=== PATIENT | female | born 1965 | race Caucasian/White ===

== ENCOUNTER 2020-08-23 06:19 | Inpatient (IN) ==
--- NOTE | 2020-08-07 14:15 | PAT Medication Instructions ---
Medication Instructions Date of Service August 07, 2020 Home Medications Medication Instructions Recorded Trulicity 1.5 mg/0.5 mL 1.5 mg SQ WEEKLY 90 Days #6 ml NS 06/15/19 subcutaneous pen injector rosuvastatin 5 mg tablet 5 mg PO WK 90 Days #13 tab 02/22/20 Trulicity 1.5 mg/0.5 mL subcutaneous pen injector 1.5 mg SQ WEEKLY cholecalciferol (vitamin D3) 50 mcg (2,000 unit) capsule 2,000 units PO DAILY lamotrigine 150 mg tablet 150 mg PO BID lorazepam 1 mg tablet 1 mg PO HS tramadol 50 mg tablet 50 mg PO TID PRN rosuvastatin 5 mg tablet 5 mg PO WK pantoprazole [Protonix] 20 mg PO QAM quetiapine [Seroquel] 25 mg PO HS Continue as directed Trulicity 1.5 mg/0.5 mL subcutaneous pen injector 1.5 mg SQ WEEKLY (just do not take on morning of surgery) rosuvastatin 5 mg tablet 5 mg PO WK DO NOT take the morning of surgery cholecalciferol (vitamin D3) 50 mcg (2,000 unit) capsule 2,000 units PO DAILY Take morning of surgery With a small sip of water, OTHERWISE NOTHING TO EAT OR DRINK AFTER MIDNIGHT: lamotrigine 150 mg tablet 150 mg PO BID tramadol 50 mg tablet 50 mg PO TID PRN (okay to take up to 4 hours prior to surgery if needed) pantoprazole [Protonix] 20 mg PO QAM Take evening before surgery lamotrigine 150 mg tablet 150 mg PO BID lorazepam 1 mg tablet 1 mg PO HS tramadol 50 mg tablet 50 mg PO TID PRN (if needed) quetiapine [Seroquel] 25 mg PO HS Other Notes If you have any questions please call us at [phone] or [phone] or [phone] or [phone]
--- NOTE | 2020-08-10 09:26 | Anesthesiology Consultation ---
Date of Service August 10, 2020 Assessment & Plan (1) Encounter for pre-operative examination: - Per assessment on 08/10: Travel screen negative. No known COVID-19 positive contacts or current COVID-19 related symptoms (but does have intermittent, chr onic cough x years). Surgeon arranging preop COVID testing (scheduled 08/16; [place]). Awaiting results. - Check BSG AM DOS - Possible difficult intubation: d/t decreased cervical extension Chart Review Chart Review: Acceptable Risk for Surgery and Patient seen in Pre Admission Testing Teaching & Discussion Pre-Anesthesia Teaching/Discussion Notes: Instructed NPO after midnight before surgery,except medications with 15 cc of water. Medication instructions provided according to the PAT guidelines. History Surgery Operation Date: 08/23/20 07:30 Proposed Procedures p Left Robotic Partial Nephrectomy, Possible Radical Nephrectomy - Jv Butcher MD Height/Weight Height: 5 ft 6 in Weight: 93.44 kg Allergies Allergy/AdvReac Type Severity Reaction Status Date / Time [place] AdvReac Unknown lemon - Uncoded 08/03/20 09:45 face red and itchy scalp glipiZIDE AdvReac Unknown muscle Uncoded 08/03/20 09:45 aches metformin AdvReac Unknown muscle Uncoded 08/03/20 09:45 aches Medications Home Medications Medication Instructions Recorded Confirmed Last Taken Trulicity 1.5 mg/0.5 mL 1.5 mg SQ WEEKLY 90 Days #6 ml NS 06/15/19 08/03/20 Unknown subcutaneous pen injector cholecalciferol (vitamin D3) 50 2,000 units PO DAILY 06/17/19 08/03/20 Unknown mcg (2,000 unit) capsule lamotrigine 150 mg tablet 150 mg PO HS 06/17/19 08/10/20 Unknown lorazepam 1 mg tablet 1 mg PO HS tab 06/17/19 08/03/20 Unknown tramadol 50 mg tablet 50 mg PO TID PRN 06/17/19 08/03/20 Unknown rosuvastatin 5 mg tablet 5 mg PO WK 90 Days #13 tab 02/22/20 08/03/20 Unknown pantoprazole [Protonix] 20 mg PO QAM 08/03/20 08/03/20 Unknown quetiapine [Seroquel] 25 mg PO HS 08/03/20 08/03/20 Unknown Past Medical History Medical History Anxiety Bulging of cervical intervertebral disc Chronic obstructive pulmonary disease currently being worked up for suspected COPD Depression Diabetes mellitus, type 2 on Trulicity GERD (gastroesophageal reflux disease) controlled Hyperlipidemia Kidney mass Obesity Exercise / Class Metabolic Activity II 4-5 Yardwork/Stairs/Walk up hill (one flight of stairs (no chest pain/no SOB)) Past Family History Family History Father Diabetes Prostate cancer Mother Hypertension Grandmother (Paternal) Diabetes Past Surgical History Surgical History History of surgery genital warts removal History of tonsillectomy and adenoidectomy Hx of LASIK Past Anesthesia History No Hx of Anesthesia Complications (except PONV x 1 episode) and No Family Hx of Anesthesia Complications History of PONV History of PONV (x1 episode >improvement with subsequent anesthesia when pre- treatment medication given) Social History Smoking Status: Former smoker Do You Dip or Chew Tobacco: No Smoking End Date: Quit 1993 Hx Alcohol Use: Yes alcohol intake frequency: holidays/special occasions only Hx Substance Use: No substance use type: does not use Review of Systems Patient denies chest pain, shortness of breath, dyspnea on exertion, fever, chills, cough, wheezing, palpitations. Physical Exam Vital Signs VITALS BP 130/84 P 76 TEMP 98.6 SP02 98%RA RESP 16 PHYSICAL Decreased cervical extension (+ bulging discs) Full TMJ range of motion. TMD 3 finger breaths Mallampati Score 3 Dentition: intact, + several crowns (sides/molars) Lungs: clear throughout to auscultation Cardiac: regular rate and rhythm, no murmurs noted Spine: normal Carotid arteries: negative bruit Extremities: no edema Testing Laboratory Results 08/10/20 09:53 08/10/20 09:53 Hemoglobin A1c 5.8 % (4.5-5.6) H 08/10/20 09:53 Urine Color Yellow 08/10/20 08:25 Urine Appearance Clear (Clear) 08/10/20 08:25 Urine pH 6.5 (4.5-7.5) 08/10/20 08:25 Ur Specific [place] 1.015 (1.000-1.030) 08/10/20 08:25 Urine Protein Negative (Negative) 08/10/20 08:25 Urine Glucose (UA) Negative (Negative) 08/10/20 08:25 Urine Ketones Negative (Negative) 08/10/20 08:25 Urine Nitrite Negative (Negative) 08/10/20 08:25 Ur Leukocyte Esterase Negative (Negative) 08/10/20 08:25 Blood Type O Positive 08/10/20 09:53 Antibody Screen NEGATIVE 08/10/20 09:53 Electrocardiogram Date: 08/10/20 Findings: + NSR @ (74) Chest X-Ray Date: 08/10/20 Findings: + NAD
--- NOTE | 2020-08-10 10:30 | XRay Report ---
XR chest Pre-admission PA/Lat HISTORY: Preop. COMPARISON: Chest 10/21/2014. FINDINGS: The lungs are clear. Cardiac silhouette is normal in size. No pleural effusions. No pneumot horax. IMPRESSION: No acute process. ACT 112: Negative or not required by law. Electronically signed by: Eric Hopkins M.D. 08/10/2020 10:29 AM
[2020-08-10 12:13] LABS: BUN Creatinine Ratio 9.6 (10-20); Calcium 9.7 mg/dl (8.5-10.1); Creatinine Clr Calc Pharmacy 71.5 ml/min; Est GFR (African American) 69.9; Est GFR (Non-African American) 60.3; Potassium 3.9 mmol/L (3.5-5.1)
[2020-08-10 12:19] LABS: Appearance Urine Clear (Clear); Bilirubin Urine Negative (Negative); Blood Urine Negative (Negative); Color Urine Yellow; Glucose Urine UA Negative (Negative); Ketones Urine Negative (Negative); Leukocyte Esterase Urine Negative (Negative); Nitrite Urine Negative (Negative); Protein Urine Negative (Negative); Specific Gravity Urine 1.015 (1.000-1.030); Urobilinogen Urine Negative (Negative); pH Urine 6.5 (4.5-7.5)
[2020-08-10 12:29] LABS: Basophils # (auto) 0.02 K/uL (0-0.2); Basophils % (auto) 0.3 %; Eosinophils # (auto) 0.42 K/uL (0-0.5); Eosinophils % (auto) 6.8 %; Hematocrit (blood only) 44.3 % (37-47); Hemoglobin 15.5 g/dL (12.0-16.0); Immature Granulocytes # (auto) 0.01 K/uL (0.00-0.02); Immature Granulocytes % (auto) 0.2 %; Lymphocytes # (auto) 1.59 K/uL (1.2-3.4); Lymphocytes % (auto) 25.6 %; Mean Corpuscular Hemoglobin 30.3 pg (25-34); Mean Corpuscular Volume 86.7 fL (80-100); Mean Platelet Volume 10.1 fL (7.4-10.4); Monocytes # (auto) 0.63 K/uL (0.11-0.59); Monocytes % (auto) 10.1 %; Neutrophils # (auto) 3.55 K/uL (1.4-6.5); Platelet Count 314 K/uL (130-400); RDW Coefficient of Variation 12.8 % (11.5-14.5); RDW Standard Deviation 41.4 fL (36.4-46.3); Red Blood Count 5.11 M/uL (4.2-5.4); White Blood Count 6.22 K/uL (4.8-10.8)
[2020-08-10 12:31] LABS: Estimated Average Glucose 120 mg/dl; Hemoglobin A1C 5.8 % (4.5-5.6)
--- NOTE | 2020-08-10 13:42 | Electrocardiogram Report ---
Test Reason : Blood Pressure : / mmHG Vent. Rate : 074 BPM Atrial Rate : 074 BPM P-R Int : 154 ms QRS Dur : 102 ms QT Int : 408 ms P-R-T Axes : 078 085 062 degrees QTc Int : 452 ms Normal sinus rhythm Normal ECG When compared with ECG of 11-SEP-2005 06:27, No significant change was found Confirmed by Alfredo Meneses ([id number]) on 08/10/2020 1:42:38 PM Referred By: Jv Butcher Confirmed By:Alfredo Meneses
[~2020-08-23 06:19] MED LIST: LR 15ML/HR IV SCH; ceFAZolin 2000MG 2,000 MG/15 ML SYR IV SCH
[2020-08-23] MEDS ORDERED: fentaNYL citrate 100 MCG/2 ML VIAL ONE ×3 (06:58→11:24)
[2020-08-23] MEDS ORDERED: ONDANSETRON INJ 2 MG/ML 2 ML VIAL ONE ×2 (06:58→12:35)
[2020-08-23] MEDS ORDERED: LIDOCAINE HCL 2% 2 ML VIAL/AMP(20MG/ML) INFIL ONE (06:58)
[2020-08-23] MEDS ORDERED: DEXAMETHASONE SOD INJ 4 MG/ML VIAL ONE (06:58)
[2020-08-23] MEDS ORDERED: PROPOFOL IV EMULSION 10 MG/ML 20 ML VIAL IV ONE (06:58)
[2020-08-23] MEDS ORDERED: MIDAZOLAM HCL 1 MG/ML 2ML VIAL ONE (06:58)
[2020-08-23] MEDS ORDERED: ACETAMINOPHEN 1000 MG/100 ML IV IV ONE (07:02)
[2020-08-23] MEDS ORDERED: BUPIVACAINE 0.5 % 5 MG/1 ML MPF 30ML VIAL ONE (07:30)
--- NOTE | 2020-08-23 08:27 | History & Physical Report ---
Date of Service August 23, 2020 Assessment & Plan (1) Renal mass: Left renal mass - plan for robotic partial nephrectomy - if unable to adequately perform partial, we will complete a radical nephrectomy - risks, benefits, expectations discussed History of Present Illness Primary Care Provider: Pool Spencer MD Left renal mass - mid pole, posterior - plan for definitive treatment today - in the form of robotic partial nephrectomy, possible radical nephrectomy Allergies Allergy/AdvReac Type Severity Reaction Status Date / Time [place] AdvReac Unknown lemon - Uncoded 08/23/20 06:58 face red and itchy scalp glipiZIDE AdvReac Unknown muscle Uncoded 08/23/20 06:58 aches metformin AdvReac Unknown muscle Uncoded 08/23/20 06:58 aches Home Medications Medication Instructions Recorded Confirmed Type Trulicity 1.5 mg/0.5 mL 1.5 mg SQ WEEKLY 90 Days #6 ml NS 06/15/19 08/23/20 Rx subcutaneous pen injector cholecalciferol (vitamin D3) 50 2,000 units PO DAILY 06/17/19 08/23/20 History mcg (2,000 unit) capsule lamotrigine 150 mg tablet 150 mg PO HS 06/17/19 08/23/20 History lorazepam 1 mg tablet 1 mg PO HS tab 06/17/19 08/23/20 History tramadol 50 mg tablet 50 mg PO TID PRN 06/17/19 08/23/20 History rosuvastatin 5 mg tablet 5 mg PO WK 90 Days #13 tab 02/22/20 08/23/20 Rx pantoprazole [Protonix] 20 mg PO QAM 08/03/20 08/23/20 History quetiapine [Seroquel] 25 mg PO HS 08/03/20 08/23/20 History Past Med/Surg History Medical History Anxiety Bulging of cervical intervertebral disc Chronic obstructive pulmonary disease currently being worked up for suspected COPD Depression Diabetes mellitus, type 2 on Trulicity GERD (gastroesophageal reflux disease) controlled Hyperlipidemia Kidney mass Obesity Surgical History History of surgery genital warts removal History of tonsillectomy and adenoidectomy Hx of LASIK Family History Father Diabetes Prostate cancer Mother Hypertension Grandmother (Paternal) Diabetes Social History Smoking Status: Never smoker Smoking End Date: Quit 1993; Second Hand Exposure: No; Do You Dip or Chew Tobacco: No; Tobacco Cessation Education Requested by Patient: No Hx Alcohol Use: Yes Hx Substance Use: No Preferred Language: Greek Communication Ability: Effective Restaurant Hostess Required: No Beliefs That Will Affect Care: None Current Living Situation: Spouse Other Information That Helps Us Care for You: No Feels Safe at Home: Yes Safety Concerns: Feels Safe At This Time Physical Exam Constitutional: well developed and well nourished Neck: neck nontender Respiratory: normal respiratory effort; no respiratory distress and does not use accessory muscles Cardiovascular: Rate/Rhythm: regular rate Vessels: radial pulses present Extremities: no edema Gastrointestinal (Abdomen): Inspection/Auscultation: abdomen normal to inspection Percussion/Palpation: abdomen soft; abdomen nontender and no guarding Musculoskeletal: Head/Neck/Chest: normocephalic and head atraumatic Extremities: extremities normal to inspection Skin: no rashes and no lesions Trauma: no evidence of skin trauma Neurologic: awake; not obtunded Speech / Cognition: normal speech Motor/Sensory: no tremor Psychiatric: Orientation: alert and oriented x 3 Lymphatic: no lymphadenopathy Results & Data ([facility]) Vital Signs (Past 12 Hours) Vital Signs Temp Pulse Resp BP Pulse Ox 08/23/20 07:08 36.7 C 78 20 155/84 H 98
[2020-08-23] MEDS ORDERED: ATROPINE SULFATE 0.1 MG/ML 10ML SYR IV PRN (09:34)
[2020-08-23] MEDS ORDERED: LABETALOL HCL IV 5 MG/ML 20ML IV PRN (09:34)
[2020-08-23] MEDS ORDERED: ONDANSETRON INJ 2 MG/ML 2 ML VIAL IV PRN ×2 (09:34→14:33)
[2020-08-23] MEDS ORDERED: PROMETHAZINE HCL 12.5 MG in SODIUM CHLORIDE 0.9% 50 ML IV PRN (09:34)
[2020-08-23] MEDS ORDERED: HYDROmorphone INJ 1 MG/ML SYRINGE IV PRN (09:34)
[2020-08-23] MEDS ORDERED: PROMETHAZINE HCL INJ 25 MG/ML 1 ML VIAL ONE (10:09)
[2020-08-23] MEDS ORDERED: HYDROmorphone INJ 2 MG/ML SYR/VIAL ONE (10:52)
[2020-08-23] MEDS ORDERED: LABETALOL HCL IV 5 MG/ML 20ML IV ONE (11:23)
[2020-08-23] MEDS ORDERED: MANNITOL 25% 12.5 GM/50 ML VIAL IV ONE ×2 (12:05→12:26)
[2020-08-23] MEDS ORDERED: GLYCOPYRROLATE 0.2 MG/ML VIAL ONE (12:36)
[2020-08-23] MEDS ORDERED: NEOSTIGMINE METHYLSULFATE 5 MG/5 ML SYR ONE (12:36)
--- NOTE | 2020-08-23 13:10 | Operative Report ---
PG Post Operative Report Pre & Post Diagnosis Operation Date: 08/23/20 08:20 Pre-Op Diagnosis: Left Renal Mass Post-Op Diagnosis: Left Renal Mass I identified the patient and participated in the time-out.: Yes Procedure Operation Date: 08/23/20 08:20 Actual Procedures p Left Robotic Partial Nephrectomy(Left) - Jv Butcher MD Surgeon Homer Butcher MD Liaison Inspection Laboratory Assistant Guero Caro; Monica Benjamin Estimated Blood Loss 25 Findings Consistent with Post-Op Diagnosis Specimens Left renal mass with overlying fat Description of Procedure Patient was identified in the preoperative holding area, appropriate informed consents were reviewed and completed and she was transported to the operating suite. Upon arrival she received appropriate preoperative antibiotics in the form of Ancef as well as general anesthesia. She was placed in a [id number] left side up lateral decubitus position. All appropriate imaging was pulled up on then room monitors. A Veress needle was passed into the left upper quadrant and insufflation of the abdomen to 15 mmHg achieved. I then marked port placement in a standard robotic partial nephrectomy fashion with the first port placed approximately 2 fingers below the costal margin just lateral to the rectus border. The second port was approximately 6 cm inferior followed by a 2 additional ports each 6 cm inferior to the port above it. A 12 mm port was marked in the infraumbilical space as well as a 5 mm midline supraumbilical port approximately 8 cm above the umbilicus. I began by passing one of the robotic ports utilizing the visual obturator and a 5 mm scope. I then confirmed that there were no adhesions and all the subsequent ports were placed without incident. The robot was docked. I began by mobilizing the white line of [place]. I was able to dissect the colon off the entire medial surface of the kidney, I also dissected inferior to the kidney by approximately 10 cm and I started to separate some adhesions linking the colon to the underside of the spleen. This allowed the spleen to move somewhat cephalad and further free the upper medial portion of the kidney. After entirely medializing the colon I was able to lift the lower cone of Gerota's and identify the gonadal and ureter. I dissected posterior tibias onto the psoas muscle. I follow the anterior surface of the gonadal to the level of the renal vein. I dissected around the renal vein and identified an adrenal vein on the opposite side of the renal vein from the gonadal. Careful dissection posterior to the vein revealed a solitary artery which was entirely dissected. At that time I turned my attention to further mobilization of the kidney. I elected to mobilize both inside and outside of Gerota's fascia. I began by mobilizing outside of Gerota's and flipping the kidney. I then incised it is on the anterior portion of the kidney and dissected this Gerota's fascia off of the kidney laterally. I was able to use this to help prop the kidney out. I had to dissect the entire upper and lower pole of the kidney to allow full mobilization. The mass is exactly posterior to the midpole and I had to flip the kidney entirely to be able to visualize this. I was able to eventually reach the lateral border of the mass and then further dissection allowed me to fully visualize the border of the mass. Intraoperative ultrasound was conducted at that time confirming the borders of the mass and planning for resection. I did miladys the capsule and my intended location of incision. At that time I felt that there was adequate visualization in preparation for resection. 12.5 g of mannitol was administered and a bulldog clamp was placed on the renal artery followed by a solitary bulldog clamp on the renal vein. Time was marked and resection initiated. I was able to begin on the medial inferior aspect of the mass and dissected carefully towards its superior lateral border. Visualization was excellent as hemostasis was excellent. I was able to visualize the mass and ensure I did not encroach upon or violate it. After entirely excising the mass renorraphy was conducted utilizing a sliding clip technique and a 3-0 Vicryl V-Loc suture. 5 total passes across the defect were required and hemostasis appeared to be excellent. At that time we unclamped the kidney. Warm ischemia time was 14 minutes. There was no evidence of any bleeding from the defect nor the hilar structures. The specimen was bagged. FloSeal was placed over top of the defect as well as a bit of Tisseel. Gerota's fascia was reapproximated over the kidney utilizing a running 3 OV lock suture. The colon was guided back into the left lateral portion of the abdomen and omentum was draped over the surgical site. The specimen was extracted through the infraumbilical port which was subsequently closed with 0 Vicryl through the fascia. Other ports were closed with 4-0 Monocryl to the skin, all ports were infiltrated with half percent Marcaine prior to closure. FloSeal was placed over the incisions. Guero Caro assisted through the seasr portions of the case and Monica Nj assisted from incision to closure. I attest to the content of the Intraoperative Record and any orders documented therein. Any exceptions are noted below.
[2020-08-23] MEDS ORDERED: FLOSEAL HEMOSTATIC MATRIX 10ML TOP ONE (13:14)
[2020-08-23] MEDS ORDERED: SURGICEL ABSORB HEMOSTAT 2IN X 14IN TOP ONE (13:14)
[2020-08-23] MEDS ORDERED: TISSEEL FIBRIN SEALANT 4ML TOP ONE (13:15)
--- NOTE | 2020-08-23 14:03 | Anesthesiology Progress Note ---
Date of Service August 23, 2020 Anesthesia Post Procedure Vital Signs Vital Signs: Temp Pulse Pulse Resp BP Pulse Ox 08/23/20 13:57 36.2 C L 73 14 147/77 H 95 08/23/20 13:45 70 18 140/75 97 08/23/20 13:35 65 16 143/90 H 96 08/23/20 13:25 66 14 154/81 H 98 08/23/20 13:15 70 14 149/84 H 96 08/23/20 13:08 37.3 C 79 12 159/87 H 96 08/23/20 07:08 36.7 C 78 20 155/84 H 98 Pain Intensity Left Abdomen: Pain Intensity: 3 Transfer of Care Handoff Completed per policy Notes Mental Status: alert / awake / arousable Patient Amnestic to Procedure: Yes Nausea / Vomiting: adequately controlled Pain: adequately controlled Airway Patency, RR, SpO2: stable & adequate BP & HR: stable & adequate Hydration State: stable & adequate Anesthetic Complications: no major complications apparent
[2020-08-23 14:07] LABS: Basophils # (auto) 0.02 K/uL (0-0.2); Basophils % (auto) 0.1 %; Eosinophils # (auto) 0.02 K/uL (0-0.5); Eosinophils % (auto) 0.1 %; Hematocrit (blood only) 41.3 % (37-47); Hemoglobin 14.2 g/dL (12.0-16.0); Immature Granulocytes # (auto) 0.06 K/uL (0.00-0.02); Immature Granulocytes % (auto) 0.4 %; Lymphocytes # (auto) 0.81 K/uL (1.2-3.4); Lymphocytes % (auto) 5.2 %; Mean Corpuscular Hemoglobin 29.5 pg (25-34); Mean Corpuscular Volume 85.9 fL (80-100); Mean Platelet Volume 9.6 fL (7.4-10.4); Monocytes # (auto) 0.14 K/uL (0.11-0.59); Monocytes % (auto) 0.9 %; Neutrophils # (auto) 14.49 K/uL (1.4-6.5); Neutrophils % (auto) 93.3 %; Platelet Count 291 K/uL (130-400); RDW Coefficient of Variation 12.6 % (11.5-14.5); RDW Standard Deviation 39.8 fL (36.4-46.3); Red Blood Count 4.81 M/uL (4.2-5.4); White Blood Count 15.54 K/uL (4.8-10.8)
[2020-08-23 14:09] LABS: Mean Corpuscular Hgb Conc 34.4 g/dL (32-36)
[2020-08-23 14:24] LABS: BUN Creatinine Ratio 10.6 (10-20); Calcium 8.6 mg/dl (8.5-10.1); Creatinine Clr Calc Pharmacy 66.7 ml/min; Est GFR (African American) 65.4; Est GFR (Non-African American) 56.4; Potassium 4.1 mmol/L (3.5-5.1)
[2020-08-23] MEDS ORDERED: MoRPHine SULFATE 2 MG/ML CARP IV PRN (14:33)
[2020-08-23] MEDS ORDERED: ACETAMINOPHEN 325 MG TAB PO PRN (14:33)
[2020-08-23] MEDS ORDERED: oxyCODONE HCL IR 5 MG TAB (IMMEDIATE RELEASE) PO PRN (14:33)
[2020-08-23] MEDS ORDERED: PHARMACY GLYCEMIC MGMT CONSULT PRN (14:42)
[2020-08-23] MEDS: LACTATED RINGER'S 1,000 ML IV SCH (14:55)
[2020-08-23] MEDS ORDERED: GLUCOSE 10 TABS/TUBE PO PRN (15:30)
[2020-08-23] MEDS ORDERED: CARBOHYDRATES FOR HYPOGLYCEMIA PO PRN (15:30)
[2020-08-23] MEDS ORDERED: NovoLIN-N (NPH) PER UNIT CHARGE SQ ONE (15:30)
[2020-08-23] MEDS ORDERED: DEXTROSE 50% 50 ML SYRINGE IV PRN (15:30)
[2020-08-23] MEDS ORDERED: GLUCOSE 40% GEL 15 GM TUBE PO PRN (15:30)
[2020-08-23] MEDS ORDERED: GLUCAGON FOR INJ 1 MG VIAL SQ PRN (15:30)
[2020-08-23] MEDS: oxyCODONE HCL IR 5 MG TAB (IMMEDIATE RELEASE) PO PRN ×2 (16:11→20:19)
[2020-08-23] MEDS ORDERED: ROSUVASTATIN CALCIUM 5 MG TAB PO SCH (17:00)
[2020-08-23] MEDS: ceFAZolin 2000MG 2,000 MG/15 ML SYR IV SCH (17:58)
[2020-08-23] MEDS: INSULIN ASPART 100 UNITS/ML 3 ML PEN SC SCH ×2 (17:59→21:50)
[2020-08-23] MEDS: MoRPHine SULFATE 2 MG/ML CARP IV PRN (18:15)
[2020-08-23] MEDS: QUEtiapine FUMARATE 25 MG TABLET PO SCH (20:17)
[2020-08-23] MEDS: lamoTRIgine 100 MG TAB PO SCH (20:17)
[2020-08-23] MEDS: LORazepam 1 MG TAB PO SCH (20:19)
[2020-08-23] MEDS ORDERED: QUEtiapine FUMARATE 25 MG TABLET PO ONE (21:33)
[2020-08-24] MEDS ORDERED: INSULIN ASPART 100 UNITS/ML 3 ML PEN SC SCH
[2020-08-24] MEDS: oxyCODONE HCL IR 5 MG TAB (IMMEDIATE RELEASE) PO PRN ×5 (00:25→22:04)
[2020-08-24] MEDS: ceFAZolin 2000MG 2,000 MG/15 ML SYR IV SCH (01:05)
[2020-08-24] MEDS: LACTATED RINGER'S 1,000 ML IV SCH ×3 (01:09→20:02)
[2020-08-24] MEDS: MoRPHine SULFATE 2 MG/ML CARP IV PRN ×3 (06:25→20:01)
[2020-08-24 07:05] LABS: Eosinophils # (auto) 0.01 K/uL (0-0.5); Eosinophils % (auto) 0.1 %; Hemoglobin 13.6 g/dL (12.0-16.0); Immature Granulocytes # (auto) 0.03 K/uL (0.00-0.02); Immature Granulocytes % (auto) 0.3 %; Lymphocytes # (auto) 2.06 K/uL (1.2-3.4); Lymphocytes % (auto) 18.8 %; Mean Corpuscular Hemoglobin 30.4 pg (25-34); Mean Corpuscular Hgb Conc 34.9 g/dL (32-36); Mean Corpuscular Volume 87.2 fL (80-100); Mean Platelet Volume 9.7 fL (7.4-10.4); Monocytes # (auto) 1.21 K/uL (0.11-0.59); Monocytes % (auto) 11.1 %; Neutrophils # (auto) 7.64 K/uL (1.4-6.5); Neutrophils % (auto) 69.7 %; Platelet Count 312 K/uL (130-400); RDW Standard Deviation 41.5 fL (36.4-46.3); Red Blood Count 4.47 M/uL (4.2-5.4); White Blood Count 10.95 K/uL (4.8-10.8)
[2020-08-24 07:34] LABS: BUN Creatinine Ratio 10.7 (10-20); Calcium 9.1 mg/dl (8.5-10.1); Creatinine Clr Calc Pharmacy 73.2 ml/min; Est GFR (African American) 73.2; Est GFR (Non-African American) 63.2; Potassium 4.1 mmol/L (3.5-5.1)
[2020-08-24] MEDS: CHOLECALCIFEROL 1,000 UNITS 25 MCG TAB PO SCH (08:34)
[2020-08-24] MEDS: PANTOprazole 40 MG TAB PO SCH (08:34)
[2020-08-24] MEDS: INSULIN ASPART 100 UNITS/ML 3 ML PEN SC SCH ×4 (08:39→20:47)
--- NOTE | 2020-08-24 10:51 | Urology Progress Note ---
Date of Service August 24, 2020 Assessment & Plan (1) Renal mass: 54 yo F POD#1 s/p left partial nephrectomy with Dr. Butcher. - Doing well, progressing as expected - Afebrile, VSS, lab work reviewed and as expected - Pain is better controlled at present time - Tolerating clear liquid diet, will advance to full liquids for lunch - D/C Powell today, monitor - Encourage OOB ambulation, incentive spirometer - Incisions appropriate - Anticipate discharge tomorrow if she continues to progress as expected Admission and Anticipated Discharge Date Admission Date: August 23, 2020 Subjective 54 yo F POD#1 s/p left partial nephrectomy with Dr. Butcher. Pt seen and examined at bedside this AM. Awake, alert and resting in bed. No acute issues overnight. Reports increased pain early this morning around 0400, incisional and left sided. She is now alternating PO oxycodone and IV Morphine with better pain control. Powell catheter intact, patent and draining clear yellow urine. Mild discomfort from catheter, no dysuria or hematuria. Tolerating clear liquid diet, no nausea or vomiting. No fever or chills. Chart review: Afebrile Creatinine 1.02 WBC 10.95 Hgb 13.6 VS - BP 123/73, HR 69, Resp 17, Temp 37.0 No additional concerns today. Review of Systems Constitutional: as per Subjective / HPI Gastrointestinal: as per Subjective / HPI Genitourinary: as per Subjective / HPI Physical Exam Constitutional: well developed and well nourished; no acute distress and not ill appearing Respiratory: normal respiratory effort and able to speak in complete sentences; no respiratory distress and no labored breathing Cardiovascular: Extremities: no calf tenderness and no pedal edema Gastrointestinal (Abdomen): Inspection/Auscultation: abdomen normal to inspection; abdomen not distended Percussion/Palpation: abdomen soft; abdomen nontender and no guarding Musculoskeletal: Head/Neck/Chest: normocephalic and head atraumatic Extremities: extremities normal to inspection Skin: Surgical incisions are well approximated, Dermabond intact, open to air, clean, dry and intact. No erythema, warmth or drainage. Neurologic: moves all extremities and awake Psychiatric: A+Ox3, euthymic affect Genitourinary: no CVA tenderness Results & Data ([facility]) Vital Signs (Past 12 Hours) Vital Signs Temp Pulse Resp BP Pulse Ox 08/24/20 07:30 37.0 C 69 17 123/73 96 08/24/20 03:00 36.8 C 77 17 105/64 95 08/23/20 23:14 36.9 C 70 17 120/71 95 PG Care Time/CCT Total # of Minutes Spent Total Time Spent with Patient: Total time spent is greater than 50% in coordination of care (as documented) at patient's floor/unit and/or counseling patient: Coding Level of Care Code 49832 Subseq Hosp Care Lvl 2 Diagnoses Renal mass N28.89
--- NOTE | 2020-08-24 12:36 | Pharmacy Report ---
Pharmacy Glycemic Short Note 2 - Date of Service August 24, 2020 - Glycemic Short BSG Results (Last 24 hours): 08/23/20 08/23/20 08/23/20 13:16 13:46 17:18 Glucose 173 H POC Glucose 148 H 159 H 08/23/20 08/24/20 08/24/20 20:49 00:41 06:37 Glucose 100 H POC Glucose 140 H 115 H 08/24/20 08/24/20 08:14 12:27 Glucose POC Glucose 90 92 OUTPATIENT ANTIDIABETIC REGIMEN: * Trulicity * HbA1c 5.8% on 08/10/20 ASSESSMENT: * 54 yo F with T2DM admitted 08/23 and now POD 1 s/p partial nephrectomy. Dexamethasone IV administered perioperatively. * BSG's responded well to a one-time dose of NPH to cover steroid effects yesterday. Will not continue basal today as AM fasting BSG is below goal range and steroids are not ongoing * BSG's below goal range today x2, with no insulin administered thus far. Will loosen Novolog parameters to weight-based moderate stress estimate PLAN FOR INPATIENT GLYCEMIC CONTROL: * Hold outpatient diabetes medication (Trulicity) * Basal insulin - discontinue * Bolus insulin - loosen * NovoLog per scale ACHS or Q6hrs while NPO * Goal Range: Low 110 mg/dL - High 140 mg/dL * Correction Factor: 25 mg/dL/unit * Nutritional / Prandial insulin per carb ratio of 1 unit per 9 grams CHO consumed PLAN FOR DISCHARGE: * Continue home Trulicity, as long as patient is not experiencing frequent hypoglycemia as an outpatient and no contraindications exist at discharge
[2020-08-24] MEDS: lamoTRIgine 100 MG TAB PO SCH (20:48)
[2020-08-24] MEDS: QUEtiapine FUMARATE 25 MG TABLET PO SCH (20:49)
[2020-08-24] MEDS: LORazepam 1 MG TAB PO SCH (20:49)
[2020-08-25] MEDS: oxyCODONE HCL IR 5 MG TAB (IMMEDIATE RELEASE) PO PRN ×2 (04:30→08:53)
[2020-08-25] MEDS: LACTATED RINGER'S 1,000 ML IV SCH (06:12)
[2020-08-25 06:55] LABS: Basophils # (auto) 0.02 K/uL (0-0.2); Basophils % (auto) 0.2 %; Eosinophils # (auto) 0.04 K/uL (0-0.5); Eosinophils % (auto) 0.3 %; Hematocrit (blood only) 36.2 % (37-47); Hemoglobin 12.2 g/dL (12.0-16.0); Immature Granulocytes # (auto) 0.04 K/uL (0.00-0.02); Immature Granulocytes % (auto) 0.3 %; Lymphocytes # (auto) 3.24 K/uL (1.2-3.4); Lymphocytes % (auto) 26.8 %; Mean Corpuscular Hgb Conc 33.7 g/dL (32-36); Mean Corpuscular Volume 88.9 fL (80-100); Mean Platelet Volume 9.4 fL (7.4-10.4); Monocytes % (auto) 11.6 %; Neutrophils # (auto) 7.35 K/uL (1.4-6.5); Neutrophils % (auto) 60.8 %; Platelet Count 223 K/uL (130-400); RDW Standard Deviation 42.2 fL (36.4-46.3); Red Blood Count 4.07 M/uL (4.2-5.4); White Blood Count 12.09 K/uL (4.8-10.8)
[2020-08-25 07:22] LABS: BUN Creatinine Ratio 9.6 (10-20); Calcium 8.1 mg/dl (8.5-10.1); Creatinine Clr Calc Pharmacy 75.4 ml/min; Est GFR (African American) 75.9; Est GFR (Non-African American) 65.5; Potassium 4.1 mmol/L (3.5-5.1)
[2020-08-25] MEDS: CHOLECALCIFEROL 1,000 UNITS 25 MCG TAB PO SCH (08:57)
[2020-08-25] MEDS: PANTOprazole 40 MG TAB PO SCH (08:57)
[2020-08-25] MEDS: INSULIN ASPART 100 UNITS/ML 3 ML PEN SC SCH ×2 (09:00→12:39)
--- NOTE | 2020-08-25 12:27 | Urology Progress Note ---
Date of Service August 25, 2020 Assessment & Plan (1) Renal mass: Doing well post op Stable labs and vitals Pain controlled OK for discharge to home today Admission and Anticipated Discharge Date Admission Date: August 23, 2020 Subjective Doing well. POD#2 partial nx. Tolerating diet. Voiding on her own. Pain better controlled. No BM. +Flatus No fevers. No chills. NO CP/SOB. Review of Systems Review of Systems: All systems reviewed & are unremarkable except as noted in HPI & below Physical Exam Constitutional: WD/WN, vitals as above Gastrointestinal (Abdomen): normal bowel sounds, soft, nontender, no hepatosplenomegaly Inc intact Results & Data ([facility]) Vital Signs (Past 12 Hours) Vital Signs Temp Pulse Pulse Resp BP Pulse Ox 08/25/20 11:32 37.1 C 84 20 112/73 90 08/25/20 07:13 37.4 C 92 H 18 115/71 100 08/25/20 05:03 37.7 C H 80 18 99/62 L 100 PG Care Time/CCT Total # of Minutes Spent Total Time Spent with Patient: Total time spent is greater than 50% in coordination of care (as documented) at patient's floor/unit and/or counseling patient: 30 min Coding Level of Care Code 70415 Subseq Hosp Care Lvl 2 Diagnoses Renal mass N28.89
--- NOTE | 2020-08-25 12:30 | Discharge Summary ---
Date of Service August 25, 2020 Admission HPI Per Admitting Provider hx of renal mass. elected for robotic surgery Principal Diagnosis Renal mass Discharge Exam Constitutional WD/WN, vitals as above Eyes PERRL, conjunctivae normal, anicteric sclerae Gastrointestinal (Abdomen) normal bowel sounds, soft, nontender, no hepatosplenomegaly Skin no rashes, warm and dry Discharge Data Allergies Allergy/AdvReac Type Severity Reaction Status Date / Time glipiZIDE AdvReac Unknown muscle Uncoded 08/23/20 06:58 aches metformin AdvReac Unknown muscle Uncoded 08/23/20 06:58 aches Procedures Performed Operation Date: 08/23/20 08:20 Actual Procedures p Left Robotic Partial Nephrectomy(Left) - Jv Butcher MD Total Time Total Time Spent Total Time Spent (In Minutes): 30 Total Time Includes: Examination of the Patient and Discharge Planning Discharge Plan Discharge Items Patient Disposition: Home - Self-Care Reason For Visit: Left Renal Mass Discharge Diagnosis: Left Renal Mass Condition on Discharge: Good Activity: Per Instructions section Lifting: No more than 10 pounds Bathing: Keep incision dry Bathing Comment: OK to shower and bathe Sexual Activity: Wait until after follow-up appointment Exercise/Sports: Wait until after follow-up appointment Driving/Machine Use: 7 days Weightbearing: Full weightbearing Non-emergency contact: Urologist Call non-emergency contact if: your pain is not controlled, you have a fever, your wound has increased redness, your wound has increased drainage and your wound pain has increased Follow-up/Referrals: Polo Spencer MD [Primary Care Provider] - Diet: Regular Addtl Attending Provider Instructions: Rest at home. Pending Studies at Discharge: No Stand-Alone Forms: My [facility], Smoking Cessation Medications and DC Order Prescriptions: Continued Trulicity 1.5 mg/0.5 mL pen injector 1.5 mg SQ WEEKLY 90 Days Qty: 6 RF: 3 rosuvastatin 5 mg tablet 5 mg PO WK 90 Days Qty: 13 RF: 1 lamotrigine [Lamictal] 150 mg tablet 150 mg PO HS RF: 0 lorazepam 1 mg tablet 1 mg PO HS RF: 0 tramadol 50 mg tablet 50 mg PO TID PRN (Reason: Pain) RF: 0 cholecalciferol (vitamin D3) 50 mcg (2,000 unit) capsule 2,000 units PO DAILY RF: 0 quetiapine [Seroquel] 25 mg Tablet 25 mg PO HS RF: 0 pantoprazole [Protonix] 20 mg Tablet,Delayed Release (Dr/Ec) 20 mg PO QAM RF: 0 Discharge Orders: Discharge Order (Routine); Ordered 08/25/20 Ordered By: Thomas Tolentino Admission Data Admit Date/Time: 08/23/20 13:08 Attending Provider: Jv Butcher Admit Provider: Jv Butcher Primary Care Provider: Pool Spencer Coding Level of Care Code D/C Day Management <30 mins
[2020-08-25] MEDS: MoRPHine SULFATE 2 MG/ML CARP IV PRN (12:44)
--- NOTE | 2020-08-27 08:11 | Discharge Summary ---
Date of Service August 27, 2020 Admission HPI Per Admitting Provider hx of renal mass. elected for robotic surgery Principal Diagnosis Renal masssuspected renal cell carcinoma Discharge Data Allergies Allergy/AdvReac Type Severity Reaction Status Date / Time glipiZIDE AdvReac Unknown muscle Uncoded 08/23/20 06:58 aches metformin AdvReac Unknown muscle Uncoded 08/23/20 06:58 aches Procedures Performed Operation Date: 08/23/20 08:20 Actual Procedures p Left Robotic Partial Nephrectomy(Left) - Jv Butcher MD Hospital Course (1) Renal mass: Admitted for a robotic partial nephrectomydetails of this procedure as dictated previously in the operative report, however, in summary she tolerated the procedure very well and was stable on the floor. She progressed appropriately over her 2-day hospital stay. She was ambulatory. She voided after removal of Powell catheter. She was tolerating a diet. She had her pain controlled on oral medications. She was discharged home on postoperative day #2 in stable condition. Total Time Total Time Spent Total Time Spent (In Minutes): 15 Discharge Plan Discharge Items Patient Disposition: Home - Self-Care Reason For Visit: Left Renal Mass Discharge Diagnosis: Left Renal Mass Condition on Discharge: Good Activity: Per Instructions section Lifting: No more than 10 pounds Bathing: Keep incision dry Bathing Comment: OK to shower and bathe Sexual Activity: Wait until after follow-up appointment Exercise/Sports: Wait until after follow-up appointment Driving/Machine Use: 7 days Weightbearing: Full weightbearing Non-emergency contact: Urologist Call non-emergency contact if: your pain is not controlled, you have a fever, your wound has increased redness, your wound has increased drainage and your wound pain has increased Follow-up/Referrals: Pool Spencer MD [Primary Care Provider] - Diet: Regular Addtl Attending Provider Instructions: Rest at home. Pending Studies at Discharge: No Stand-Alone Forms: My [employer], Opioid Pain Management, Smoking Cessation Medications and DC Order Prescriptions: Continued Trulicity 1.5 mg/0.5 mL pen injector 1.5 mg SQ WEEKLY 90 Days Qty: 6 RF: 3 rosuvastatin 5 mg tablet 5 mg PO WK 90 Days Qty: 13 RF: 1 lamotrigine [Lamictal] 150 mg tablet 150 mg PO HS RF: 0 lorazepam 1 mg tablet 1 mg PO HS RF: 0 tramadol 50 mg tablet 50 mg PO TID PRN (Reason: Pain) RF: 0 cholecalciferol (vitamin D3) 50 mcg (2,000 unit) capsule 2,000 units PO DAILY RF: 0 quetiapine [Seroquel] 25 mg Tablet 25 mg PO HS RF: 0 pantoprazole [Protonix] 20 mg Tablet,Delayed Release (Dr/Ec) 20 mg PO QAM RF: 0 Discharge Orders: Discharge Order (Routine); Ordered 08/25/20 Ordered By: Thomas Tolentino Admission Data Admit Date/Time: 08/23/20 13:08 Attending Provider: Jv Butcher Admit Provider: Jv Butcher Primary Care Provider: Pool Spencer Other Interventions: Discharge Summary Assessment (RN) Last Done: 08/25/20 12:54 Coding Level of Care Code D/C Day Management <30 mins Diagnoses Renal mass N28.89
--- NOTE | 2020-09-03 13:56 | Coding Query ---
CODING QUERY To promote full compliance with coding requirements relating to patient care, provider participation is requested in all cases of food preparation kitchen aide uncertainty. Please assist us with the question(s) below: Coding Question(s): Please specify below, regarding the Partial Left Nephrectomy procedure on 08/23/20. ( ) Done for Diagnostic purposes ( x ) Done for Diagnostic and Therapeutic purposes ( ) Other: Please Specify Physician's Response(s): Suspected renal cell carcinoma (pathology ultimately proved this diagnosis accurate), treatment to remove the mass (definitive treatment) and determine final pathology Thank you [place] Principal Diagnosis: "that condition established after study, to be chiefly responsible for occasioning the admission of the patient to the hospital for care." Co-Existing Principal Diagnosis: "when two or more diagnoses equally meet the criteria for principal diagnosis as determined by the circumstances of admission, diagnostic work up, and/or therapy provided, and the Alphabetic Index, Tabular List, or another coding guideline does not provide sequencing direction, any one of the diagnoses may be sequenced first." "When the physician has documented what appears to be a current diagnosis in the body of the record, but has not included the diagnosis in the final diagnostic statement, the physician should be asked whether the diagnosis should be added." (Source [facility]oding [facility] 2 QTR90. p3-4) ANTHONY
--- NOTE | 2020-09-03 13:57 | Coding Query ---
PATHOLOGY To promote full compliance with coding requirements relating to patient care, physician participation is requested in all cases of contact center engineer uncertainty. Please assist us with the question(s) below: Please review the Pathology report and please document any relevant diagnosis(es) below: Diagnosis(es): Clear cell renal cell carcinoma Thank you La CRUZ
== END 2020-08-25 14:17 | disposition home or self-care (01) | DRG 658 ==
LOC: ASU 06:19 → 3N 13:08